=== PATIENT | female | born 1970 | race Caucasian/White ===

== ENCOUNTER 2016-09-11 19:16 | Inpatient (IN) | payer OTHER ==
[~2016-09-11] VITALS: Ht 172.7 cm; Wt 90.2 kg
[~2016-09-11 19:16] MED LIST: REM15 PO
[2016-09-11 19:33] VITALS: BP 109/77; PULSE 140; RESP 16; O2SAT 97
[2016-09-11] MEDS ORDERED: HYDROmorphone 1 mg/mL Inj ONE (19:39)
--- NOTE | 2016-09-11 19:49 | ED.REPORT ---
HPI-Abd Pain F 40 and Over Date of Service Sep 11, 2016 ED Provider: Constantin Sharp MD The patient is a 46 year old female w/ a hx of kidney stones who presents to the ED c/o R flank pain for the past 3 days. Associated symptoms include nausea. She denies fever and vomiting. History of previous kidney stones. No dysuria or frequency or hematuria. Nursing Notes Stated Complaint: RIGHT FLANK PAIN Chief Complaint: Female Abdominal Pain Nursing Notes Reviewed: Yes Allergies: Coded Allergies: No Known Allergies (Unverified Allergy, Unknown, 09/11/16) Scheduled Mirtazapine-Expunged Drug, Do Not Renew! (Remeron-Expunged Drug, Do Not Renew!) 15 Mg Tablet 15 MG PO HS General Time Seen by MD: 19:46 Chief Complaint Abdominal pain Hx Obtained From: Patient Arrived By: Walk-in Sudden in Onset?: Yes Onset Occurred: 3 days ago Symptom Duration: Since onset Progression since Onset: Gradually worsening Location: : RLQ Quality: Painful Radiation: : Does not radiate Severity: Current: Moderate Associated with: Reports: Nausea Recent Healthcare: No recent doctor visit, No recent hospitalization Similar Sx Previous: No Past Medical History Past Medical History kidney stones Ambulatory Status Independent Review of Systems Constitutional: Denies: Fever GI: Reports: Abdominal pain, Nausea, Denies: Vomiting Complete sys rev & neg: except as marked. Physical Exam Vital Signs Vital Signs (First) Date Time Temp Pulse Resp B/P Pulse Ox O2 Delivery O2 Flow Rate FiO2 09/11/16 19:33 36.5 140 16 109/77 97 Room Air Initial VS: Reviewed General/Constitutional: Awake, Alert, Cooperative, Not toxic appearing Respiratory / Chest: Atraumatic, Breath sounds NL, Breath sounds = bilat Cardiovascular: Heart rate NL, Regular rhythm, Heart sounds NL Abdomen: Atraumatic, Soft, Non-tender Back: No muscle spasm right CVAT Head / Eyes: Atraumatic, Normocephalic Skin: Atraumatic, Color NL, No rash Neurologic: Oriented X3, Speech NL, No motor deficits Upper Extremity / MS: Atraumatic, Inspection NL, Full range of motion, No deformity Lower Extremity / Pelvis / MS: Atraumatic, Inspection NL, Full range of motion , No deformity Interpretation & Diagnostics Interpretation & Diagnostics: ABDOMINAL/PELVIC CT IMPRESSION: Findings likely consistent with acute cholecystitis. Recommend gallbladder ultrasound. Intra- and extrahepatic duct dilation without an obvious obstructing process. Please correlate with lab values. Radiologist: Prakash Frey M.D. Lab Results Interpretation Result Diagram: 09/11/16201309/11/162013 Test 09/11/16 20:14 09/11/16 21:49 09/11/16 23:01 White Blood Count 10.3th/mm3 (3.8-10.1) Red Blood Count 5.07mil/mm3 (3.90-5.20) Hemoglobin 15.1g/dL (12.0-15.6) Hematocrit 43.7% (35.0-46.0) Mean Corpuscular Volume 86.2fL (81-100) Mean Corpuscular Hemoglobin 29.8pg (27.0-35.0) Mean Corpuscular Hemoglobin Concent 34.6% (32.0-37.0) Red Cell Distribution Width 12.6% (12.3-15.4) Platelet Count 289bil/L (150-400) Neutrophils (%) (Auto) 82.0% (40-74) Lymphocytes (%) (Auto) 8.3% (14-46) Monocytes (%) (Auto) 8.6% (4-12) Eosinophils (%) (Auto) 0.7% (0-5) Basophils (%) (Auto) 0.2% (0-3) Sodium Level 136mEq/L (134-144) Potassium Level 3.9mEq/L (3.5-5.2) Chloride Level 99mEq/L (97-108) Carbon Dioxide Level 22mmol/L (18-29) Blood Urea Nitrogen 8mg/dL (6-24) Creatinine 0.93mg/dL (0.57-1.00) Estimat Glomerular Filtration Rate 93mL/min (>59) Glucose Level 119mg/dL (60-99) Calcium Level 9.0mg/dL (8.5-10.1) Total Bilirubin 0.6mg/dL (0.0-1.2) Aspartate Amino Transf (AST/SGOT) 12U/L (0-50) Alanine Aminotransferase (ALT/SGPT) 10U/L (0-32) Alkaline Phosphatase 73U/L (25-150) Total Protein 6.8g/dL (6.4-8.4) Albumin 4.0g/dL (3.4-5.0) Hold Gallego Top Tube Received (Received) Urine Color Yellow (YELLOW) Urine Appearance Hazy (CLEAR,HAZY) Urine pH 5.5 (5.0-8.0) Urine Specific [place] 1.018 (1.003-1.035) Urine Protein 30mg/dL (NEG,TRACE) Urine Glucose (UA) Negativemg/dL (NEGATIVE) Urine Ketones 15mg/dL (NEGATIVE) Urine Occult Blood Large (NEGATIVE) Urine Nitrite Negative (NEGATIVE) Urine Bilirubin Negative (NEGATIVE) Urine Urobilinogen Normalmg/dL (NORMAL) Urine Leukocyte Esterase Negative (NEGATIVE) Urine RBC 11-50/hpf (0-2) Urine WBC 0-5/hpf (0-5) Urine Epithelial Cells Many/hpf (NONE-MOD) Urine Crystals None seen (NONE SEEN) Urine Bacteria Few/hpf (NONE-FEW) Urine Hyaline Casts 5/20/lpf (NONE) Urine Granular Casts None seen (NONE SEEN) Urine Waxy Casts None seen (NONE SEEN) Urine Red Blood Cell Casts None seen (NONE SEEN) Urine White Blood Cell Casts Rare (NONE SEEN) Urine Mucus Present (None Seen) Urine Trichomonas None seen (NONE SEEN) Urine Yeast None (NONE SEEN) Urinalysis Comment Fine granular casts Urine Culture Reflexed Not indicated Lipase 27U/L (13-60) Lab Results Interpretation: Urine dip: positive for blood Re-Eval/Medical Decision Med Decision/Clinical Course Right flank pain and hematuria. CT however shows unexpected finding of possible cholecystitis. With markedly tachycardic on arrival, this improved with IV hydration and pain control. Heart rate is now normal. Re-Evaluation/Progress #1: Time of Eval: 21:51 Re-Evaluation/Progress Note: Pt rechecked. Informed pt of plan for CT KV. Re-Evaluation/Progress #2: Time of Eval: 22:49 Patient Status: Condition improved, Moderate relief Re-Evaluation/Progress Note: Pt rechecked. Informed pt of possible cholecystitis. Now has RUQ tendeness on exam. Plan for ultrasound. Counseled Regarding: Diagnosis, Lab results, Need for follow-up, When/why to return to ED Discharge & Departure Shift Change Sign-Out Patient Care Transferred: Yes Laboratory Evaluation: Back, reviewed by me Imaging Studies: Done, reviewed by me awaiting US. To Dr Evans at midnight. Primary Impression: Cholecystitis Disposition: Home Discharge Condition All VS Reviewed: Yes Condition: Stable Patient Instructions: Cholecystitis (ED) Referrals: NOPCP (PCP) [facility] Scribe Attestation Portion of this note were transcribed by Antonieta Bentley. I, Dr. Sharp, personally performed the history, physical exam, and medical decision-making: I reviewed and confirmed the accuracy for the information in the transcribed note. Signed by: alex Bone, 09/11/16 [id number] copies to: [facility] Constantin Sharp MD Sep 11, 2016 19:49 Antonieta Bentley Sep 11, 2016 19:57
[2016-09-11] MEDS: HYDROmorphone 1 mg/mL Inj IVPUSH PRN ×2 (19:50→21:59)
[2016-09-11 20:28] LABS: BASOPHILS % (AUTO) 0.2 % (0-3); EOSINOPHILS % (AUTO) 0.7 % (0-5); MONOCYTES % (AUTO) 8.6 % (4-12); Mean Corpuscular Hemoglobin 29.8 pg (27.0-35.0); Mean Corpuscular Volume 86.2 fL (81-100); Platelet Count 289 bil/L (150-400)
[2016-09-11 21:59] VITALS: BP 122/82; PULSE 114; RESP 16; O2SAT 95
[2016-09-11 22:07] LABS: APPEARANCE,URINE HAZY (CLEAR,HAZY); COLOR,URINE YELLOW (YELLOW); OCCULT BLOOD,URINE LARGE (NEGATIVE); PH,URINE 5.5 (5.0-8.0)
[2016-09-11 22:11] LABS: UROBILINOGEN,URINE NORMAL (NORMAL)
[2016-09-11 23:34] VITALS: BP 96/60; PULSE 88; RESP 14; O2SAT 97
[2016-09-12] VITALS (19 sets, daily range): BP systolic 100–134; BP diastolic 50–84; PULSE 71–104; RESP 10–20; O2SAT 92–98
[2016-09-12] MEDS: HYDROmorphone 1 mg/mL Inj IVPUSH PRN ×8 (01:14→21:33)
[2016-09-12] MEDS ORDERED: fentaNYL-PF 50 mCg/mL 2 mL Inj ONE (01:59)
[2016-09-12] MEDS ORDERED: Neostigmine 1 mg/mL 5 mL Inj ONE (01:59)
[2016-09-12] MEDS ORDERED: Remifentanil 1 mg/3 mL Inj ONE (01:59)
[2016-09-12] MEDS ORDERED: Ondansetron 2 mg/mL 2 mL Inj ONE (01:59)
[2016-09-12] MEDS ORDERED: Dexamethasone 4 mg/mL Inj ONE (01:59)
[2016-09-12] MEDS ORDERED: Propofol 10,000 mCg/mL 20 mL Inj ONE (01:59)
[2016-09-12] MEDS ORDERED: Glycopyrrolate 0.2 MG/ML 1mL Inj ONE (01:59)
[2016-09-12] MEDS ORDERED: Rocuronium 10 mg/mL 5 mL Inj ONE (01:59)
[2016-09-12] MEDS ORDERED: MetoCLOpramide 5 mg/mL 2 mL Inj IVPUSH PRN ×2 (02:35→11:35)
[2016-09-12] MEDS ORDERED: Ondansetron 2 mg/mL 2 mL Inj IVPUSH PRN ×3 (02:35→13:00)
[2016-09-12] MEDS: Dextrose 5% Lactated Ringer's 1,000 ML IV SCH ×3 (03:51→22:31)
--- NOTE | 2016-09-12 04:14 | NUR ---
Admit to [facility] 249 Received phone reports from ED RN augusto at 0140, pt. arrived in the floor via WC accompanied by ED staff at 0230, able to transfer herself to bed independently with steady gait, oriented to call light, and hospital policies, pt. very anxious r/t pain and upcoming surgery, easily redirected with calm and reassurance approach, Pt. reported of hx. of IV drug abuse and suicidal attempt, locked up all belongings and sharp containers taken out, pt. pleasant and cooperative to staff and care,no suicidal ideation noted, on NPO for pos. surgery, VSS afebrile, hourly checks, call light in reach at all times and all needs attended.
--- NOTE | 2016-09-12 06:30 | PCM.HPSURG ---
Subjective Date of Service: Sep 12, 2016 Referring Provider: Admitting Physician: Ashley Oliveros DO Primary Care Physician: Samantha Hines PA-C Attending Physician: Ashley Oliveros DO Chief Complaint Right upper quadrant pain History of Present Illness Ms. Montes is a 46 year old woman who presents with 2 days of right upper quadrant abdominal pain and concern for cholecystitis, prompting surgical evaluation. The patient reports that on Monday afternoon (09/09), she began to gradually develop right upper quadrant abdominal pain and right flank pain. Initially, she thought this pain represented a kidney stone, as it was similar in quality to past episodes of nephrolitihiasis. However, the pain continued to intensity, becoming quite severe. By Monday evening, the pain had become nearly unbearable and has persisted at this level of intensity since then. She describes the pain as sharp and stabbing, radiating toward her right groin. She has had no relief, and therefore decided to present to the ED. With further questioning, she denies any correlation with the pain to PO intake, stating the pain started hours after eating a normal lunch on Monday. She has since not eaten or drank anything out of fear for worsening her symptoms. She has experienced nausea, but no vomiting, and thinks she has had some shaking chills but no fevers. She denies any change in her urine or bowel movements, noting she last passed a normal stool yesterday morning. There have been no sick contacts, and the patient denies ever experiencing similar pain, of a lesser intensity, over the past few months. 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 states she lives in recreational van and she thinks that theres a mold behind the matthews that making her SOB at times. Neurological History Hx Neurologic Problems?: No Gastrointestinal History HX of GI Problems?: Yes Gastrointestinal History: Positive for:: Gastroesphageal Reflux Heartburn Genitourinary History Hx of Gu Problems?: Yes Genitourinary History: Positive for: Kidney Stones (2013, pt. passed stones in urine) Urinary Tract Infection Other Pertinent History?: tubal ligation when she was 28 y.o, IBS Female/Male History Reproductive History Female: Denies: Currently ? Musculoskeletal History Hx Musculoskeletal Problems?: Yes Psycho Social History Hx of Psycho/Social Problems?: Yes Psycho Social History: Positive for:: Anxiety Bipolar Disorder Hx Depression Suicide Attempt (2010) Other History Hx Any Other Health Problems?: Yes Other History: Positive for:: Hospitalization (2010) Diabetes: No Other Pertinent History: tubal ligation Social History Hx Alcohol Use: YesAlcoholic Drinks Per Day: 1-2 per dayHx Substance Use: Yes (methamphetamines)Hx Tobacco Use: Yes Review of Systems Additional Information Except as noted in the HPI, a comprehensive review of systems was obtained an is otherwise negative. H&P Surgical Exam Exam General: Alert, Oriented X3, Cooperative Neck: Supple Lungs: Other (Occasional faint wheezing on end-expiration. Otherwise clear. Equal and symmetric chest excursion. ) Heart: Other (Tachycardic with rate in 100s. Normal S1/S2. No m/r/g. ) Abdomen: Soft, Non-distended, Other (Tender to palpation in the right upper quadrant with positive Galvan's sign. No masses or organomegaly. Voluntary guarding. No rebound tenderness. Not rigid. ) Extremities: Distal Pulses Palpable, Warm Neuro: Grossly Neurologically Intact Catheters: None Diagnostics: CT A/P is personally reviewed: There is diffuse gallbladder wall thickening and the CBD dilation. US abdomen: The gallbladder wall is thickened to 4 mm. There are numerous gallstones. There is no pericholecystic fluid. CBD is dilated to 7 mm. Assessment & Plan Assessment This is a 46 year old otherwise healthy female who presents with severe RUQ pain of 48 hours duration, a positive Galvan's sign, and findings consistent with acute cholecystitis. VTE Mechanical Devices: Intermittant Pneumatic CD Plan: - Admit to surgery - NPO - mIVF - Antibiosis with zosyn - Plan for laparoscopic cholecystectomy with intraop cholangiogram in the morning. - Pt will likely be able to advance diet and possibly discharge post-op, depending on operative findings Case discussed with Dr. 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 Omar Benz MD Sep 12, 2016 06:30
--- NOTE | 2016-09-12 07:46 | DRSVH ---
PROCEDURE: CT KUB ([id number]) INDICATIONS: Right flank pain and hematuria TECHNIQUE: Noncontrast 5 mm thick sections acquired from the diaphragms to the symphysis. 5 mm thick coronal an d sagittal reformats were then performed. For radiation dose reduction, the following was used: aut omated exposure control, adjustment of mA and/or kV according to patient size. COMPARISON: None. FINDINGS: Image quality: Excellent. Lung bases: Lung bases are clear. Heart size is normal. There is a small hiatal hernia. Urinary system: There is a 2 mm stone in the left kidney. No right renal stone. No hydronephrosis. B oth kidneys are normal in size. No kid or perinephric fat stranding. Both ureters appear non-dilate d throughout their expected courses. Bladder wall is contracted; no calcified bladder stones. Other solid organs: Liver and spleen are normal in size. Gallbladder wall is thickened. There also is. Common bile duct is prominent measuring up to 11 mm. No opaque common bile duct stones identifie d. There is mild intrahepatic biliary dilation. Pancreas is normal in contours. No adrenal nodules. Peritoneum and bowel: Unenhanced bowel loops demonstrate normal wall thickness and caliber. Scatter ed colonic diverticula present. No free fluid or air. Nodes and vessels: No retroperitoneal or mesenteric adenopathy by size criteria. Aorta and inferior vena cava are normal in caliber. Abdominal wall: No ventral hernias. Pelvis: No free pelvic fluid. No inguinal hernias or adenopathy. Bones: No suspicious bony lesions. No vertebral body compression fractures. IMPRESSION: 1. Cholelithiasis. There is gallbladder wall thickening suspicious for acute cholecystitis. 2. Dilated common bile duct and slightly prominent intrahepatic biliary ducts. Recommend correlation with serum bilirubin. 3. A 2 mm nonobstructive stone in the left kidney. No hydronephrosis. 4. Diverticulosis. No acute diverticulitis. No significant discrepancy with the production shift supervisor radiology preliminary report. Dictated by: Rachel Loya M.D. on 09/12/2016 at 7:38 Approved by: Rachel Loya M.D. on 09/12/2016 at 7:44
--- NOTE | 2016-09-12 08:47 | DRSVH ---
PROCEDURE: US ABDOMEN, LIMITED ([id number]) INDICATIONS: evaluate for cholecystitis TECHNIQUE: Real-time focused scanning was performed of the abdomen, with image documentation. COMPARISON: None. FINDINGS: There are gallstones. The gallbladder wall is thickened measuring 4 mm. There is positive s onographic Galvan sign. The common bile duct measures 7 mm in diameter. No definitive common bile robert t stone identified. Limited visualization of liver which is normal echotexture. IMPRESSION: 1. Cholelithiasis. There is gallbladder wall thickening and sonographic Galvan sign, suspicious for a cute cholecystitis. 2. Common bile duct is prominent in caliber. Please correlate with serum bilirubin. No significant discrepancy with the material handler 2nd shift radiology preliminary report. Dictated by: Rachel Loya M.D. on 09/12/2016 at 8:42 Approved by: Rachel Loya M.D. on 09/12/2016 at 8:45
[2016-09-12] MEDS ORDERED: CeFAZolin Inj 2 GM in IV Premix 1 EACH IV SCH (10:30)
--- NOTE | 2016-09-12 10:41 | NUR ---
Transer to Surgery Pt taken on stretcher to OR. Pt very scared, gave reassurance.
[2016-09-12] MEDS ORDERED: Lactated Ringer's 1,000 ML IV ONE (10:56)
[2016-09-12] MEDS ORDERED: Bupivacaine-MPF 0.5% W/EPI 30 mL Inj INFILTRATE ONE (11:13)
[2016-09-12] MEDS ORDERED: Lactated Ringer's 1,000 ML IV SCH (11:35)
[2016-09-12] MEDS ORDERED: Lactated Ringer's 500 ML IV PRN (11:35)
[2016-09-12] MEDS ORDERED: Atropine 0.4 mg/mL Inj IVPUSH PRN (11:35)
[2016-09-12] MEDS ORDERED: EPHEDrine Sulfate 50 mg/mL Inj IVPUSH PRN (11:35)
[2016-09-12] MEDS ORDERED: Dexamethasone 4 mg/mL Inj IVPUSH PRN (11:35)
[2016-09-12] MEDS ORDERED: Phenylephrine 10,000 mCg/mL Inj IVPUSH PRN (11:35)
[2016-09-12] MEDS ORDERED: fentaNYL-PF 50 mCg/mL 2 mL Inj IVPUSH PRN (11:35)
--- NOTE | 2016-09-12 11:35 | PCM.HPANE ---
Patient Data Surgeon Admitting Provider:Ashley Oliveros DO Attending Provider:Ashley Oliveros DO Primary Care Physician:Samantha Hines PA-C Other Provider: Reason for Visit Cholelithiasis, Cholecystitis,Choledochothiasis Ht/WT & BMI Height (Feet): 5 Height (Inches): 8.00 Weight (Kilograms): 84.500 Body Mass Index 28.23 Allergies Coded Allergies: No Known Allergies (Unverified Allergy, Unknown, 09/11/16) Past Anesthesia History Anesthesia History: Denies:: Anesthesia Reactions Diabetes History Hx Diabetes?: No MRSA MRSA: No Medications Discontinued Reported Medications Mirtazapine-Expunged Drug, Do Not Renew! (Remeron-Expunged Drug, Do Not Renew!) 15 Mg [id number] Mg PO HS 04/15/10 History History of ENT Problems?: No HEENT History: Positive for:: Abnormal Airway Denture Type: None Teeth Condition: Within Normal Limits Hx of Heart Problems?: No Cardiovascular History: Denies:: Congestive Heart Failure Hypertension Hx of Respiratory Problem?: Yes Respiratory History: Positive for:: Dyspnea Pneumonia (2015) Denies:: Tuberculosis Other Resp Pertinent History: Bronchitis 2013, pt. states she lives in recreational van and she thinks that theres a mold behind the matthews that making her SOB at times. Hx Neurologic Problems?: No Hx of GI Problems?: Yes Hx of Problems?: Yes Genitourinary History: Positive for:: Kidney Stones (2013, pt. passed stones in urine) Urinary Tract Infection Other Pertinent History: tubal ligation when she was 28 y.o, IBS Female Hx: Denies:: Currently Hx Musculoskeletal Problems?: Yes Hx of Psycho/Social Problems?: Yes Psycho Social History: Positive for:: Anxiety Bipolar Disorder Hx Depression Suicide Attempt (2010) Hx Surgeries?: Yes Hx Any Other Health Problems?: Yes Other History: Positive for:: Hospitalization (2010) History Blood Transfusions: Positive for:: Accept Blood Products? 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 Hx Alcohol Use: YesAlcoholic Drinks Per Day: 1-2 per dayHx Substance Use: Yes (methamphetamines, but has been sober for several years)Have You Smoked inLast 12 mo: YesApprox How Many Cigarettes/day: 1/2 pack in a day Stop/Bang Treated for Sleep Apnea?: No Do You Have a CPAP Machine?: No S-Snoring: Do You Snore Loudly: Yes T-Tired: feel tired, fatigued: Yes O-Obsered: Observed not breath: No P-Blood Pressure: treated: No B- Body Mass Index > 35 kg/m2: No A- Age over 50: No N- Neck Large Circumference: No G- Gender Male: No MARZENA Total Score: 2 MARZENA Risk Assessment: Low Risk, <3 Yes Risk Assessment Category Category 1A: Patient has history of documented sleep apnea, and HAS NOT received any narcotic, sedative or anesthesia administration during this stay. Category 1B: Patient has history of documented sleep apnea, and HAS received any narcotic , sedative or anesthesia administration during this stay Category 2: Patient has SUSPECTED Obstructive Sleep Apnea, and HAS received any narcotic , sedative or anesthesia administration during this stay. Category 3: Patient has SUSPECTED Obstructive Sleep Apnea and HAS NOT received narcotic, sedative or anesthesia administration during this stay. Category 4: Outpatient in Procedural Areas with known sleep apnea or who screen positive for High Risk via the STOP/BANG questionnaire. Exam Exam Vital Signs Vital Signs Date Time Temp Pulse Resp B/P Pulse Ox O2 Delivery O2 Flow Rate FiO2 09/12/16 05:46 36.8 79 18 112/68 98 Room Air 09/12/16 02:40 36.6 96 19 100/72 96 Room Air General Appearance: Alert HEENT/AIRWAY: MP 2 Lungs: Other (Occasional faint wheezing on end-expiration. Otherwise clear. Equal and symmetric chest excursion. ) Heart: Other (Tachycardic with rate in 100s. Normal S1/S2. No m/r/g. ) Additional Information very poor dentition, multiple loose teeth Meds/Labs/Diagnostics Admission Meds Current Medications Dextrose/Lactated Ringer's (D5 Lactated Ringer's) 1,000 ml @ 100 mls/hr Q10H IV Last administered on 09/12/16t 03:51; Start 09/12/16 at 02:31 Labs Test 09/11/16 20:14 09/11/16 21:49 09/11/16 23:01 White Blood Count 10.3th/mm3 (3.8-10.1) Red Blood Count 5.07mil/mm3 (3.90-5.20) Hemoglobin 15.1g/dL (12.0-15.6) Hematocrit 43.7% (35.0-46.0) Mean Corpuscular Volume 86.2fL (81-100) Mean Corpuscular Hemoglobin 29.8pg (27.0-35.0) Mean Corpuscular Hemoglobin Concent 34.6% (32.0-37.0) Red Cell Distribution Width 12.6% (12.3-15.4) Platelet Count 289bil/L (150-400) Neutrophils (%) (Auto) 82.0% (40-74) Lymphocytes (%) (Auto) 8.3% (14-46) Monocytes (%) (Auto) 8.6% (4-12) Eosinophils (%) (Auto) 0.7% (0-5) Basophils (%) (Auto) 0.2% (0-3) Sodium Level 136mEq/L (134-144) Potassium Level 3.9mEq/L (3.5-5.2) Chloride Level 99mEq/L (97-108) Carbon Dioxide Level 22mmol/L (18-29) Blood Urea Nitrogen 8mg/dL (6-24) Creatinine 0.93mg/dL (0.57-1.00) Estimat Glomerular Filtration Rate 93mL/min (>59) Glucose Level 119mg/dL (60-99) Calcium Level 9.0mg/dL (8.5-10.1) Total Bilirubin 0.6mg/dL (0.0-1.2) Aspartate Amino Transf (AST/SGOT) 12U/L (0-50) Alanine Aminotransferase (ALT/SGPT) 10U/L (0-32) Alkaline Phosphatase 73U/L (25-150) Total Protein 6.8g/dL (6.4-8.4) Albumin 4.0g/dL (3.4-5.0) Hold Gallego Top Tube Received (Received) Urine Color Yellow (YELLOW) Urine Appearance Hazy (CLEAR,HAZY) Urine pH 5.5 (5.0-8.0) Urine Specific [place] 1.018 (1.003-1.035) Urine Protein 30mg/dL (NEG,TRACE) Urine Glucose (UA) Negativemg/dL (NEGATIVE) Urine Ketones 15mg/dL (NEGATIVE) Urine Occult Blood Large (NEGATIVE) Urine Nitrite Negative (NEGATIVE) Urine Bilirubin Negative (NEGATIVE) Urine Urobilinogen Normalmg/dL (NORMAL) Urine Leukocyte Esterase Negative (NEGATIVE) Urine RBC 11-50/hpf (0-2) Urine WBC 0-5/hpf (0-5) Urine Epithelial Cells Many/hpf (NONE-MOD) Urine Crystals None seen (NONE SEEN) Urine Bacteria Few/hpf (NONE-FEW) Urine Hyaline Casts 5/20/lpf (NONE) Urine Granular Casts None seen (NONE SEEN) Urine Waxy Casts None seen (NONE SEEN) Urine Red Blood Cell Casts None seen (NONE SEEN) Urine White Blood Cell Casts Rare (NONE SEEN) Urine Mucus Present (None Seen) Urine Trichomonas None seen (NONE SEEN) Urine Yeast None (NONE SEEN) Urinalysis Comment Fine granular casts Urine Culture Reflexed Not indicated Lipase 27U/L (13-60) Plan Impression Patient chart reviewed, patient interviewed and anesthestic plan with risks, benefits, and alternatives discussed, and informed consent obtained. NPO per Anesth. Guidelines: Yes ASA Physical Status: ASA2 Mod Systemic Disease Anesthetic Plan: GA Bene/Risks/Altern/Consents: Yes HP Complete Prior to Induction: Yes Other Discussed GETA. Discussed increased risk of dental injury. All questions were answered and she agrees to proceed. Owen Burk MD Sep 12, 2016 09:20
[2016-09-12] MEDS ORDERED: diphenhydrAMINE 25 mg Capsule PO PRN (13:00)
[2016-09-12] MEDS: Acetaminophen IV 1,000 MG in IV Premix 1 EACH IV PRN (13:15)
--- NOTE | 2016-09-12 13:42 | PCM.ANEP1 ---
Post Anesthesia PACU Phase 1 Assessment Vital Signs Vital Signs Date Time Temp Pulse Resp B/P Pulse Ox O2 Delivery O2 Flow Rate FiO2 09/12/16 13:20 82 16 120/69 96 09/12/16 13:15 75 15 116/60 92 Room Air 09/12/16 13:10 73 16 128/60 92 Room Air 09/12/16 13:05 37.3 89 16 134/68 95 Room Air 09/12/16 08:15 37.5 95 18 120/78 93 Room Air 09/12/16 05:46 36.8 79 18 112/68 98 Room Air Anesthetic Administered: GA Level of Alertness: Awake, talking SWEEENY's with Equal Strength: Yes Pain: Yes Pain Scale Score: 6 Nausea or Vomiting: No CV Function & Hydration Stable: Yes Airway Device: none Oxygen Delivery: Simple Mask Lungs: Other (Occasional faint wheezing on end-expiration. Otherwise clear. Equal and symmetric chest excursion. ) Summary Patient extubated awake. Teeth intact upon arrival to PACU. PACU Phase 2 Assessment Complications: No Follow up Care: No Patient Instructions Provided: N/A Owen Burk MD Sep 12, 2016 13:42
[2016-09-12 13:52] LABS: BASOPHILS % (AUTO) 0.1 % (0-3); EOSINOPHILS % (AUTO) 0.1 % (0-5); MONOCYTES % (AUTO) 2.9 % (4-12); Mean Corpuscular Hemoglobin 30.2 pg (27.0-35.0); Mean Corpuscular Volume 89.3 fL (81-100); NEUTROPHILS % (AUTO) 92.2 % (40-74); Platelet Count 241 bil/L (150-400)
--- NOTE | 2016-09-12 14:10 | NUR ---
Return from PACU report received from Karine SAUL. Pt arrived via stretcher at 1410 Able to scoot self from stretcher to bed with cues. c/o pain 07/06, rx given per request. Reports "I just don't feel well" ice chips given.
[2016-09-12] MEDS: D5 0.45% NaCl + KCl 20 mEq/L 1,000 ML IV SCH ×2 (14:28→23:05)
--- NOTE | 2016-09-12 20:20 | OP ---
[address] [address] OPERATIVE REPORT PATIENT: SETH INMAN : 1970 MR#: [id number] ADMIT: 09/12/2016 JOB ID: [id number] DATE OF SURGERY: 09/12/2016 PREOPERATIVE DIAGNOSIS(ES): Symptomatic gallstones. POSTOPERATIVE DIAGNOSIS(ES): Acute cholecystitis. PROCEDURE: Laparoscopic cholecystectomy. SURGEON: Sameer Barclay MD. CHECKER LOADER: Evelio Bowman PA-C. INDICATIONS: A 46-year-old woman admitted the night before with symptomatic gallstones. I saw her in the morning and confirmed that I believed her gallbladder was her problem, reviewed plans for surgery with her. She agreed to proceed with me as her surgeon. FINDINGS: 1. curriculum assistant was medically necessary for camera operation and exposure. 2. The patient had marked inflammation of the gallbladder, somewhat surprising given her overall presentation. A dome-down cholecystectomy was performed, cholangiogram was not obtained as described below. PROCEDURE: The patient brought to the operating room. General anesthetic was administered. The abdomen was prepped and draped in sterile fashion. Surgical time-out was performed. SCOAP protocol was followed. She received perioperative Ancef. We began with a Veress needle. After establishing CO2 pneumoperitoneum, we placed an optical trocar and then three additional ports. The stomach and greater omentum were stuck up to the gallbladder. We peeled these off. Gallbladder was retracted cephalad. There was a great deal of inflammation around the triangle of Calot. We began our dissection on the gallbladder side of the triangle of Calot. After a fair amount of dissection, I decided that it would be safer to go from the dome-down approach. We incised the gallbladder wall and retracted the peritoneum northward and looked for a good plane between the gallbladder wall and the edematous liver bed. We eventually found one, though there was no obvious plane and we then got into a plane right on the gallbladder, including a few holes in the gallbladder. Dissection was tough but we stayed on the gallbladder, getting inside the gallbladder once or twice and then removed stones with the stone scoop. Staying along the wall of the gallbladder we continued down laterally and posteriorly and then medially and eventually I reached a point where I was concerned that we should just do a partial cholecystectomy out of safety. What I ended up doing was amputating the upper 80% of the gallbladder and removing this in a bag, irrigating out, and then re-examining the operative field. Looking inside the gallbladder, we were able to identify down to the area of the triangle of Calot anteriorly and where it was clearly gallbladder and I incised this thickened, inflamed wall and we were able to dissect around and obtain circumferential dissection of the gallbladder down to where from the inside we could see where the gallbladder ended and it was attached to some tissue coming out of the hepatoduodenal ligament. We then proceeded to go across this with scissors close to the gallbladder, initially going to what I thought was going to be a cystic duct and appeared to be possibly an obliterated cystic duct. We put a clip on this and then continued across and found pretty much just filmy tissue. We removed the remainder of the gallbladder in a bag, examined it on the back table to confirm that the anatomy that we interpreted was correct. The gallbladder was intact right down to where the cystic duct entry should. We now returned to the operative field and examined the tissue that had been coming directly into the gallbladder, removing the clip and probing this to see if we could find a patent cystic duct. I could not find one, so I replaced the clip. I placed another clip on some tissue that was loose and free that had been coming into the gallbladder and then proceeded to irrigate out the area of the operative bed. Operative bed was clean. We had not left any gallbladder on the posterior surface of the liver bed. Hemostasis was good. There is no bile leak. After suctioning out all of our irrigation, we placed a 19-Luxembourger round drain in the liver bed and brought it out through the right most lateral wall stab wound. We then proceeded to close the wounds and secured the drain. At the time of this dictation, the patient is awakened from anesthetic. We will plan to have her stay overnight, check her LFTs in the morning.
[2016-09-13 00:04] VITALS: BP 107/66; PULSE 95; RESP 16; O2SAT 96
[2016-09-13] MEDS: HYDROmorphone 1 mg/mL Inj IVPUSH PRN ×7 (01:57→21:22)
[2016-09-13 04:10] VITALS: BP 104/64; PULSE 83; RESP 14; O2SAT 96
--- NOTE | 2016-09-13 06:01 | NUR ---
Post Op Recovery Patient is recovering well with some abd. pain relieved with medication. Very little drainage from the CLARISSE tube. VSS and she is in good spirits. Waiting this AM for surgeon to give D/C instructions.
[2016-09-13 07:01] LABS: BASOPHILS % (AUTO) 0.1 % (0-3); EOSINOPHILS % (AUTO) 0.3 % (0-5); Mean Corpuscular Hemoglobin 29.7 pg (27.0-35.0); Mean Corpuscular Volume 85.9 fL (81-100); NEUTROPHILS % (AUTO) 77.6 % (40-74); Platelet Count 276 bil/L (150-400)
[2016-09-13 07:06] VITALS: BP 149/82; PULSE 88; O2SAT 96
[2016-09-13] MEDS: Lactated Ringer's 1,000 ML IV SCH (11:24)
[2016-09-13] MEDS: Acetaminophen IV 1,000 MG in IV Premix 1 EACH IV PRN (11:26)
--- NOTE | 2016-09-13 12:07 | PROG NOTE ---
[address] [address] PROGRESS NOTE PATIENT: SETH INMAN : 1970 MR#: [id number] ADMIT: 09/12/2016 JOB ID: [id number] DATE: 09/13/2016 SUBJECTIVE: Postop day one laparoscopic cholecystectomy. OBJECTIVE: The patient is afebrile, stable vital signs but is having an above average amount of postop pain, particularly in the right upper quadrant. Vicente-Sims drain has put out a low volume of yovani-colored liquid. Her incisions are without signs of infection. Labs show white count of 9.8, hematocrit is dropped down to 31.8. Her chemistries are normal. Liver function tests remain normal with bilirubin of 0.3 and alkaline phosphatase is 60. IMPRESSION AND PLAN: Clinically having more pain than expected and the Vicente-Sims appears to me to be of low volume bile leak, possibly from the liver bed or the cystic duct. The case was discussed with Dr. Chapman, and he plans to obtain an MRCP given the patient's preoperative dilated common duct and clinical history consistent with passing a common duct stone. She is having too much pain to go home even if she did not have an issue of bile leak. Because of bile leak I will place her on Zosyn.
--- NOTE | 2016-09-13 12:48 | NUR ---
Versed Medication overridden r/t omnicell problem for removal. 1mg given and 1mg wasted w/ shavon watts Addendum: 09/13/16 at 1351 by ABAD JOHNSON RN second dose required override to obtain as well, then gave 1mg per order and wasted 1mg w/ clint gaitan rn. See emar admin comment to verify.
[2016-09-13 13:30] VITALS: BP 107/66; PULSE 89; RESP 16; O2SAT 97
--- NOTE | 2016-09-13 13:57 | PATH ---
SURGICAL PATHOLOGY Attending Physician:Sameer Barclay MD CASE STATUS: Signed Out PATIENT NAME: SETH INMAN PID: [id number] : 1970 DATE COLLECTED:09/12/2016 21:41 SPECIMEN: 1: Gallbladder 2: Gallbladder CLINICAL HISTORY: SYMPTOMATIC GALLSTONES, ACUTE CHOLECYSTITIS 1). GALLBLADDER WITH STONES 2). GALLBLADDER WITH STONES FINAL DIAGNOSIS: 1. 2. GALLBLADDER: CHOLELITHIASIS WITH ASSOCIATED ACUTE AND CHRONIC CHOLECYSTITIS. ICD10 K80.66 GROSS DESCRIPTION: The specimen is received in one formalin filled container and one container not labeled as to the fixative, both containers are labeled with the patient's name. 1). The specimen is labeled "gallbladder and stones" and consists of a rough and fragmented portion of possible gallbladder which measures 6.0 x 8.0 x 2.3 CM. The cystic duct is not identified. The serosa is smooth. The wall is 0.4-0.7 CM in thickness. The mucosa is a dark pink red in color. The lumen contains clotted blood and approximately 5-10 fragments of yellow-rose fragmented calculi which range in size from 0.1-1.5 CM in greatest dimension. 5 primary care sales representative sections are submitted in cassettes 1A, 1B. 2). The specimen is labeled "gallbladder and stones" and consists of a 3.0 x 2.0 x 1.0 CM portion of possible gallbladder. The serosa is smooth. No cystic duct is identified. The wall is 0.3-0.6 CM in thickness. The mucosa is a dark pink in color. No calculi are noted. 3 primary care sales representative sections are cemented in cassettes 2A. 09/12/2016DC MICRO DESCRIPTION: See diagnosis. ICD-9 CODES: CPT CODES: 1: 56529 2: 17389 Electronically Signed Out Constantin Durbin MD [facility] Pathology [facility] [address] [place] [address] Technical component performed at [facility], [facility] [address], [place], [address]
[2016-09-13] MEDS: Piperacillin-Tazo 3.375 Gm Inj 3.375 GM in Dextrose 5% Minibag Plus 50 ML IV SCH (16:28)
--- NOTE | 2016-09-13 16:55 | DRSVH ---
PROCEDURE: NM HIDA SCAN BILE LEAK RADIOPHARMACEUTICAL: 5.6 mCi Tc-99m mebrofenin IV. INDICATIONS: POST CHOLECYSTECTOMY, POSSIBLE BILE LEAK TECHNIQUE: Following intravenous administration of Tc-99m mebrofenin, sequential anterior abdominal images were obtained through at least 60 minutes. COMPARISON: None. FINDINGS: There is normal tracer uptake and excretion by the liver. There is normal visualization o f intrahepatic ducts, common bile duct, and small bowel There is normal tracer reflux into the proxim al duodenum. No extraluminal activity identified to suggest bile leak. IMPRESSION: 1. Negative for bile leak via nuclear imaging. 2. Normal hepatobiliary scan post cholecystectomy. Dictated by: Casey Soriano M.D. on 09/13/2016 at 16:51 Approved by: Casey Soriano M.D. on 09/13/2016 at 16:53
--- NOTE | 2016-09-13 17:25 | NUR ---
Social Work Note: Multidisciplinary Rounds/Screen Note/Attempted Assessment Data& Assessment: EMR reviewed. Pt was discussed in AM rounds today, Per MD pt to undergo MRI. Pt had gallbladder removed yesterday. SW attempted to meet with pt at bedside to check in and assess for any unmet needs. Pt was away in MRI. Ivelisse Montes is a 46 year old female admitted on 09/12/2016 under observation for cholelithiasis. Pt has [employer] insurance coverage and sees Samantha Hines for primary care. Pt independent at baseline and independent with self care. SW to continue to follow for MD orders and pt needs. No needs identified at this time. SW to check in with pt to confirm discharge plan. Plan: Anticipated discharge home via POV when medically ready. SW to continue to follow for MD orders and pt needs. No needs identified at this time. SW to check in with pt to confirm discharge plan. RAJEEV Lucero
--- NOTE | 2016-09-13 17:49 | NUR ---
Pain, Diagnostic Studies At approximately 7:30, Pt. had an episode of intense pain and anxiety. MD at to assess. MRI - MRCP ordered to evaluate wound, drain, abdomen. Patient too anxious to tolerate. MD ordered midazolam and given per order. Patient still not able to evaluate MRI, for the second time. Next ordered was a @@ which was tolerated. Pain decreased throughout the day. Addendum: 09/13/16 at 1755 by SHARRI THIBODEAUX RN Next ordered was a HIDA SCAN which was tolerated. Pain decreased throughout the day.
--- NOTE | 2016-09-13 18:47 | CONS ---
[address] [address] CONSULTATION REPORT PATIENT: SETH INMAN : 1970 MR#: [id number] ADMIT: 09/12/2016 JOB ID: [id number] DATE OF SERVICE: 09/13/2016 PHYSICIAN REQUESTING CONSULTATION: Sameer Barclay MD. REASON FOR CONSULTATION: A dilated common bile duct that was seen on imaging and possible bile leak. HISTORY OF PRESENTING ILLNESS: The patient is a 45-year-old woman, who presented to the emergency department on September 12 with a two day complaint of right upper quadrant pain. The pain radiated into the right flank and was associated with nausea. She denies any vomiting. She does report having had some chills two days ago along with the dark-colored urine, but this, however, subsequently passed. She therefore presented to the emergency department. She had ongoing right upper quadrant pain. In the emergency department, aside from tachycardia, her vital signs were otherwise normal. Her blood work revealed a mild leukocytosis with a slight left shift. LFTs were normal as was the lipase. She subsequently had a CT scan of the abdomen done which showed that there was gallbladder wall thickening, dilated common bile duct and slight prominence of the intrahepatic ducts. No free pelvic fluid was seen. She then had an ultrasound which showed cholelithiasis and gallbladder wall thickening and a Galvan sign was positive. She subsequently underwent a cholecystectomy and was noted to have acute cholecystitis. An intraoperative cholangiogram was unable to be performed. She did have a CLARISSE drain placed during her surgery. I have been asked by Surgery to see her regarding ongoing right upper quadrant pain and possible bile leak. PAST MEDICAL HISTORY: Significant for kidney stones. PAST SURGICAL HISTORY: Includes tubal ligation. FAMILY HISTORY: Noncontributory. SOCIAL HISTORY: Alcohol: She drinks 1-2 alcoholic drinks a day. She also does have a history of methamphetamine use but has been sober for several years and she smokes about 1 to 1-1/2 packs of cigarettes daily. 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 MEDICATIONS: She takes no medications at home. ALLERGIES: She has no known drug allergies. REVIEW OF SYSTEMS: A 10-point review of systems is negative except as mentioned above in the HPI. PHYSICAL EXAMINATION: Her temperature is 37.5, her pulse is 95, blood pressure is 120/78, respiratory rate is 18. Generally, she is a young woman who appears to be in some mild distress secondary to pain which she states is in the right upper quadrant. She is, however, appropriate and answers questions appropriately. HEENT no pallor. No icterus. Oropharynx is clear, however, poor dentition. Chest exam is clear to auscultation bilaterally. Cardiovascular exam: S1, S2 heard. Abdomen: She does have Steri-Strips over her surgical sites from her laparoscopic cholecystectomy and there is a right CLARISSE drain in the right upper quadrant that has bloody fluid in the bulb. Her abdomen: She does have sort of diffuse tenderness. Bowel sounds are appreciated. Extremities without edema. LABORATORY DATA: Today, shows a white blood cell count of 9.8, hemoglobin of 11, hematocrit of 31.8, platelet count 276. Her LFTs continue to remain normal with the exception of a mild drop in her albumin to 3.1, and her total protein to 5.5. Her serum glucose is mildly elevated at 112 and her calcium is mildly depressed at 8.3. ASSESSMENT AND PLAN: A 46-year-old woman presenting with acute cholecystitis and imaging showing biliary dilation which is concerning for choledocholithiasis. However, with her normal LFTs this would go against that. An MRI was ordered earlier today. The patient, however, was unable to tolerate that and therefore subsequently a HIDA scan has been ordered to evaluate for the possibility of a bile leak as well as to see if this maybe evidence of stones in her bile duct. If HIDA scan does not show evidence of a bile leak, we could plan for endoscopic ultrasound to evaluate for common bile duct stones. If present, then we could proceed with ERCP. In the meantime, we continue to follow LFTs, continue pain control. Thanks for allowing me to participate in this patient's care. If you have any further questions, please do not hesitate to contact me.
--- NOTE | 2016-09-13 20:02 | PROG NOTE ---
[address] [address] PROGRESS NOTE PATIENT: SETH INMAN : 1970 MR#: [id number] ADMIT: 09/12/2016 JOB ID: [id number] DATE: 09/13/2016 The patient is seen in followup this afternoon. She was seen in consultation by Dr. Chapman. She was unable to tolerate MRI after two attempts. She did have a HIDA scan which demonstrates no evidence of bile leak. On examination tonight, she is much more comfortable, tells me that she is relatively pain-free, requesting a meal. Her Vicente-Sims drainage is much clearer, no longer has any brown bile staining. IMPRESSION AND PLAN: Doing well. I have reviewed Dr. Chapman's note and he may be interested in performing an endoscopic ultrasound tomorrow. It is possible that I was mistaken about the bile in the drain, but I suspect that she has a transient minor bile leak or perhaps some spilled bile that had not been drained previously. However, at this point, based on the HIDA scan and the clinical appearance of the drain, there is no leak. I will let her have clear liquids tonight, keep her n.p.o. after midnight in case Dr. Chapman wants to proceed with endoscopic ultrasound tomorrow, per his note. If all is well, she should be able to be discharged without her drain within the next day or two. I explained to her that I will not be here for the next several days, but she will be seen by the Surgery Service.
[2016-09-14] VITALS (7 sets, daily range): BP systolic 117–132; BP diastolic 65–106; PULSE 66–86; RESP 12–16; O2SAT 95–98
[2016-09-14] MEDS: Piperacillin-Tazo 3.375 Gm Inj 3.375 GM in Dextrose 5% Minibag Plus 50 ML IV SCH ×4 (01:56→23:48)
[2016-09-14] MEDS: Lactated Ringer's 1,000 ML IV SCH ×2 (01:56→03:50)
--- NOTE | 2016-09-14 06:18 | NUR ---
Pain/Anxiety Pt. had another episode of intense Px that was unresolved with Dilaudid at first and was given oxycodone with relieve. Her pain increases as does her anxiety which cause her to scream out. Constant reassurance also plays a part in calming her down. She was calm the rest of this shift.
--- NOTE | 2016-09-14 07:36 | NUR ---
Zosyn Dose #2 was scanned in and saved as given, however it was not. Second dose is now starting.
[2016-09-14 08:01] LABS: BASOPHILS % (AUTO) 0.2 % (0-3); EOSINOPHILS % (AUTO) 1.6 % (0-5); MONOCYTES % (AUTO) 10.4 % (4-12); Mean Corpuscular Hemoglobin 29.2 pg (27.0-35.0); Mean Corpuscular Volume 88.6 fL (81-100); NEUTROPHILS % (AUTO) 66.8 % (40-74); Platelet Count 229 bil/L (150-400)
--- NOTE | 2016-09-14 09:00 | PCM.PNSURG ---
Subjective Date of Service: Sep 14, 2016 Date of Service: Sep 14, 2016 Visit Information: Reason for Visit Cholelithiasis, Cholecystitis,Choledochothiasis Surgery/Surgery Date Post-Op Day # 2 S/P Laparoscopic cholecystectomy Date of Admission: Sep 12, 2016 at 01:58 Hospital Day # Subjective: Dr. Barclay was concerned for possible bile leak? The patient has improved generalized nonspecific intermittent abdominal pain today with pertinent positive psychosocial comorbidities and effectively controlled with by mouth analgesics. She was unable to tolerate MRIs secondary to anxiety and also had a negative HIDA scan yesterday. Her CLARISSE drain output is not bilious. She is hungry and currently tolerating a clear liquid diet and voiding with no reported bowel movements or flatus. Her LFTs and white blood cell count so far has been negative as well. Wood Setter Dr. Shin confired with Dr. Cannon regarding the diatation of her CBD. The patient is ambulating independently in the hallway without significant pain and will likely undergo a repeat MRCP + CT abdomen without contrast pancreas protocol under sedation. Gastrointestinal: Good Appetite, No N/V Pain Management: PO, IV Push, Good Pain Control Postop Activity: Ambulating in [place] Objective Vital Sign- Last 8 Hours Date Time Temp Pulse Resp B/P Pulse Ox O2 Delivery O2 Flow Rate FiO2 09/14/16 08:58 37.1 72 16 125/82 97 Room Air Intake and Output- Last 8 Hour 09/14/16 Cumulative From/Thru 07:00 09/11/16 19:33 - 09/14/16 06:00 Intake Total 4569 ml Output Total 60 ml 850 ml Balance -60 ml 3719 ml Intake Oral 1670 ml IV Total 2899 ml Output Urine Total 600 ml Drainage Total 60 ml 150 ml Estimated Blood Loss 100 ml # Voids 5 # Bowel Movements 0 General: Alert, Oriented X3, Cooperative, No Acute Distress Lungs: Clear to Auscultation Heart: Exam Unremarkable Abdomen: Soft, Appropriately tender, Non-distended SURGICAL WOUND : Wound General Appearence: Steri Strips, Intact, Well Approximated, No Erythema, No Discharge, No Inflammatory Changes Wound Drainage Type: CLARISSE Drain #1 (60 mL serosanguineous fluid only) Extremities: Thigh&Calf Soft/Nontender Neuro: Normal Speech Result Diagram: 09/14/16 0742 09/14/16 0742 Assessment & Plan Impression This is a 46-year-old female postoperative day #2 status post laparoscopic cholecystectomy but her attending surgeon Dr. Sameer Barclay M.D. was unable to perform intraoperative cholangiogram documenting +/- bilious drain output postoperatively recommending GI consult to rule out, common bile duct obstruction. Unfortunately the patient was unable to undergo MRI secondary to anxiety. However she did have a negative HIDA scan and now has normal serosanguineous CLARISSE drain output of 60ml. Her white blood cell count, bilirubin, and liver enzymes are within normal limits. She is otherwise doing well on clear liquids without significant nausea, vomiting, or bowel movements and improving nonspecific generalized intermittent pain controlled with by mouth analgesics. Wood Setter Dr. Shin and Dr. Cannon discussed repeat attempt at MRCP and MRI of the abdomen without contrast under sedation as recommended by radiology. Primary diagnosis: 1. Acute cholecystitis 2. Status post laparoscopic cholecystectomy POD # 2 Other Medical & Surgical History History of methamphetamine abuse History of pneumonia 2016 Tubal ligation GERD UTI Nephrolithiasis Anxiety Bipolar disorder History of depression and suicide attempts 2010 Problems: Plan 1. CT abdomen without contrast pancreas protocol & MRCP under sedation. 2. Follow up after results for reevaluation. 3. Continue standard postoperative protocols including encouraging supervised ambulation. Gianfranco Jurado PA-C Sep 14, 2016 09:00
[2016-09-14] MEDS ORDERED: Propofol 10,000 mCg/mL 20 mL Inj ONE (09:07)
[2016-09-14] MEDS ORDERED: fentaNYL-PF 50 mCg/mL 2 mL Inj ONE (09:07)
--- NOTE | 2016-09-14 12:16 | PCM.PNMED ---
Subjective Date of Service Sep 14, 2016 Subjective abdominal pain improved overall she does report episodic worsening abdominal pain in the RUQ which is controlled with pain medications she denies nausea or vomiting passing flatus Exam Vital Signs Vital Sign - Last Date Time Temp Pulse Resp B/P Pulse Ox O2 Delivery O2 Flow Rate FiO2 09/14/16 08:58 37.1 72 16 125/82 97 Room Air Intake and Output 09/13/16 09/13/16 09/14/16 Cumulative From/Thru 15:00 23:00 07:00 09/11/16 19:33 - 09/14/16 06:00 Intake Total 4569 ml Output Total 60 ml 60 ml 850 ml Balance -60 ml -60 ml 3719 ml Intake Oral 1670 ml IV Total 2899 ml Output Urine Total 600 ml Drainage Total 60 ml 60 ml 150 ml Estimated Blood Loss 100 ml # Voids 5 # Bowel Movements 0 Exam Gen- very anxious HEENT- no pallor or icterus Resp- clear bilaterally CVS-RRR Abdomen- soft, mild diffuse tenderness, CLARISSE drain non bilious fluid Lab and Diagnostics Result Diagram: 09/14/16 0742 09/14/16 0742 Assessment & Plan Dilated CBD with Normal LFT's -Recommend MRCP to evaluate with anesthesia assistance -if attempt at MRCP fails with anesthesia assisted sedation, could then consider EUS, -if filling defects noted then will plan for ERCP tomorrow or monday S/P cholecystectomy for acute calculous cholecystitis -post op care as per surgery team VTE Mechanical Devices: Intermittant Pneumatic CD Ghanshyam Chapman MD Sep 14, 2016 12:16
--- NOTE | 2016-09-14 15:40 | NUR ---
Social Work: Multidisciplinary Rounds Pt discussed in rounds. Pt not likely to d/c today. Pt continues to have her baseline anxiety. Pt currently on IVABX. 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 RAJEEV Leung
[2016-09-14] MEDS: HYDROmorphone 1 mg/mL Inj IVPUSH PRN ×2 (15:55→20:38)
--- NOTE | 2016-09-14 17:40 | NUR ---
Diagnostics and Anxiety Dr. Muñiz spoke at length and explained MRI MRSP procedure to patient who consented to scan with anesthesia managing anxiety/agitation. Patient continues to have sudden moments of tearfulness/feeling overwhelmed. Low stimulation and soothing aid quite a bit. Patient taken off floor to MRI at 1630.
--- NOTE | 2016-09-14 18:11 | PCM.HPANE ---
Patient Data Surgeon Admitting Provider:Ashley Oliveros DO Attending Provider:Ashley Oliveros DO Primary Care Physician:Samantha Hines PA-C Other Provider: Reason for Visit Cholelithiasis, Cholecystitis,Choledochothiasis Ht/WT & BMI Height (Feet): 5 Height (Inches): 8.00 Weight (Kilograms): 90.200 Body Mass Index 28.23 Allergies Coded Allergies: No Known Allergies (Unverified Allergy, Unknown, 09/11/16) Past Anesthesia History Anesthesia History: Positive for:: Abnormal Airway, Denies:: Anesthesia Reactions Diabetes History Hx Diabetes?: No MRSA MRSA: No Medications Home Meds Incl Beta Chika: No Discontinued Reported Medications Mirtazapine-Expunged Drug, Do Not Renew! (Remeron-Expunged Drug, Do Not Renew!) 15 Mg Wvkgio00 Mg PO HS 04/15/10 History History of ENT Problems?: No HEENT History: Positive for:: Abnormal Airway Denture Type: None Teeth Condition: Within Normal Limits Hx of Heart Problems?: No Cardiovascular History: Denies:: Congestive Heart Failure Hypertension Hx of Respiratory Problem?: Yes Respiratory History: Positive for:: Dyspnea Pneumonia (2015) Denies:: Tuberculosis Other Resp Pertinent History: Bronchitis 2013, pt. states she lives in recreational van and she thinks that theres a mold behind the matthews that making her SOB at times. Hx Neurologic Problems?: No Hx of GI Problems?: Yes Hx of Problems?: Yes Genitourinary History: Positive for:: Kidney Stones (2013, pt. passed stones in urine) Urinary Tract Infection Other Pertinent History: tubal ligation when she was 28 y.o, IBS Female Hx: Denies:: Currently Hx Musculoskeletal Problems?: Yes Hx of Psycho/Social Problems?: Yes Psycho Social History: Positive for:: Anxiety Bipolar Disorder Hx Depression Suicide Attempt (2010) Hx Surgeries?: Yes Hx Any Other Health Problems?: Yes Other History: Positive for:: Hospitalization (2010) History Blood Transfusions: Positive for:: Accept Blood Products? 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 Hx Alcohol Use: YesAlcoholic Drinks Per Day: 1-2 per day Hx Substance Use: Yes (methamphetamines, but has been sober for several years) Have You Smoked inLast 12 mo: YesApprox How Many Cigarettes/day: 1/2 pack in a day Stop/Bang Treated for Sleep Apnea?: No Do You Have a CPAP Machine?: No S-Snoring: Do You Snore Loudly: Yes T-Tired: feel tired, fatigued: Yes O-Obsered: Observed not breath: No P-Blood Pressure: treated: No B- Body Mass Index > 35 kg/m2: No A- Age over 50: No N- Neck Large Circumference: No G- Gender Male: No MARZENA Total Score: 2 MARZENA Risk Assessment: Low Risk, <3 Yes Risk Assessment Category Category 1A: Patient has history of documented sleep apnea, and HAS NOT received any narcotic, sedative or anesthesia administration during this stay. Category 1B: Patient has history of documented sleep apnea, and HAS received any narcotic , sedative or anesthesia administration during this stay Category 2: Patient has SUSPECTED Obstructive Sleep Apnea, and HAS received any narcotic , sedative or anesthesia administration during this stay. Category 3: Patient has SUSPECTED Obstructive Sleep Apnea and HAS NOT received narcotic, sedative or anesthesia administration during this stay. Category 4: Outpatient in Procedural Areas with known sleep apnea or who screen positive for High Risk via the STOP/BANG questionnaire. Low Risk, <3 Yes Exam Exam Vital Signs Vital Signs Date Time Temp Pulse Resp B/P Pulse Ox O2 Delivery O2 Flow Rate FiO2 09/14/16 16:15 37.5 09/14/16 14:30 38.4 86 12 131/83 96 Room Air 09/14/16 08:58 37.1 72 16 125/82 97 Room Air General Appearance: Alert HEENT/AIRWAY: MP 2 Lungs: Clear to Auscultation Heart: Exam Unremarkable Meds/Labs/Diagnostics Admission Meds Current Medications Piperacillin Sod/ Tazobactam Sod/ Dextrose/Water (Zosyn 3.375 Gm Inj/D5W Minibag Plus) 50 ml @ 12.5 mls/hr Q8H IV Last administered on 09/14/16t 15:48 ; Start 09/14/16 at 15:30 Labs Test 09/11/16 20:14 09/11/16 21:49 09/11/16 23:01 09/14/16 07:42 Hold Gallego Top Tube Received (Received) Urine Color Yellow (YELLOW) Urine Appearance Hazy (CLEAR,HAZY) Urine pH 5.5 (5.0-8.0) Urine Specific [place] 1.018 (1.003-1.035) Urine Protein 30mg/dL (NEG,TRACE) Urine Glucose (UA) Negativemg/dL (NEGATIVE) Urine Ketones 15mg/dL (NEGATIVE) Urine Occult Blood Large (NEGATIVE) Urine Nitrite Negative (NEGATIVE) Urine Bilirubin Negative (NEGATIVE) Urine Urobilinogen Normalmg/dL (NORMAL) Urine Leukocyte Esterase Negative (NEGATIVE) Urine RBC 11-50/hpf (0-2) Urine WBC 0-5/hpf (0-5) Urine Epithelial Cells Many/hpf (NONE-MOD) Urine Crystals None seen (NONE SEEN) Urine Bacteria Few/hpf (NONE-FEW) Urine Hyaline Casts 5/20/lpf (NONE) Urine Granular Casts None seen (NONE SEEN) Urine Waxy Casts None seen (NONE SEEN) Urine Red Blood Cell Casts None seen (NONE SEEN) Urine White Blood Cell Casts Rare (NONE SEEN) Urine Mucus Present (None Seen) Urine Trichomonas None seen (NONE SEEN) Urine Yeast None (NONE SEEN) Urinalysis Comment Fine granular casts Urine Culture Reflexed Not indicated Lipase 27U/L (13-60) White Blood Count 5.0th/mm3 (3.8-10.1) Red Blood Count 3.60mil/mm3 (3.90-5.20) Hemoglobin 10.5g/dL (12.0-15.6) Hematocrit 31.9% (35.0-46.0) Mean Corpuscular Volume 88.6fL (81-100) Mean Corpuscular Hemoglobin 29.2pg (27.0-35.0) Mean Corpuscular Hemoglobin Concent 32.9% (32.0-37.0) Red Cell Distribution Width 12.3% (12.3-15.4) Platelet Count 229bil/L (150-400) Neutrophils (%) (Auto) 66.8% (40-74) Lymphocytes (%) (Auto) 20.6% (14-46) Monocytes (%) (Auto) 10.4% (4-12) Eosinophils (%) (Auto) 1.6% (0-5) Basophils (%) (Auto) 0.2% (0-3) Sodium Level 140mEq/L (134-144) Potassium Level 3.6mEq/L (3.5-5.2) Chloride Level 103mEq/L (97-108) Carbon Dioxide Level 24mmol/L (18-29) Blood Urea Nitrogen 9mg/dL (6-24) Creatinine 0.52mg/dL (0.57-1.00) Estimat Glomerular Filtration Rate 183mL/min (>59) Glucose Level 85mg/dL (60-99) Calcium Level 8.3mg/dL (8.5-10.1) Total Bilirubin 0.2mg/dL (0.0-1.2) Aspartate Amino Transf (AST/SGOT) 11U/L (0-50) Alanine Aminotransferase (ALT/SGPT) 16U/L (0-32) Alkaline Phosphatase 54U/L (25-150) Total Protein 5.0g/dL (6.4-8.4) Albumin 2.9g/dL (3.4-5.0) Plan Impression Patient chart reviewed, patient interviewed and anesthestic plan with risks, benefits, and alternatives discussed, and informed consent obtained. NPO per Anesth. Guidelines: Yes ASA Physical Status: ASA3 Severe Disease Anesthetic Plan: MAC Bene/Risks/Altern/Consents: Yes HP Complete Prior to Induction: Yes Owen Burk MD Sep 14, 2016 16:29
[2016-09-14] MEDS ORDERED: Lactated Ringer's 1,000 ML IV SCH (18:12)
[2016-09-14] MEDS ORDERED: Lactated Ringer's 500 ML IV PRN (18:12)
--- NOTE | 2016-09-14 18:12 | PCM.ANEP1 ---
Post Anesthesia PACU Phase 1 Assessment Vital Signs Vital Signs Date Time Temp Pulse Resp B/P Pulse Ox O2 Delivery O2 Flow Rate FiO2 09/14/16 16:15 37.5 09/14/16 14:30 38.4 86 12 131/83 96 Room Air Anesthetic Administered: MAC Level of Alertness: Awake, talking SWEENEY's with Equal Strength: Yes Pain: Yes Pain Scale Score: 7 Nausea or Vomiting: No CV Function & Hydration Stable: Yes Airway Device: none Oxygen Delivery: Simple Mask Lungs: Clear to Auscultation PACU Phase 2 Assessment Complications: No Follow up Care: No Patient Instructions Provided: Yes Owen Burk MD Sep 14, 2016 18:12
[2016-09-14] MEDS ORDERED: Phenylephrine 10,000 mCg/mL Inj IVPUSH PRN (18:15)
[2016-09-14] MEDS ORDERED: MetoCLOpramide 5 mg/mL 2 mL Inj IVPUSH PRN (18:15)
[2016-09-14] MEDS ORDERED: Dexamethasone 4 mg/mL Inj IVPUSH PRN (18:15)
[2016-09-14] MEDS ORDERED: Ondansetron 2 mg/mL 2 mL Inj IVPUSH PRN (18:15)
[2016-09-14] MEDS ORDERED: fentaNYL-PF 50 mCg/mL 2 mL Inj IVPUSH PRN (18:15)
[2016-09-14] MEDS ORDERED: EPHEDrine Sulfate 50 mg/mL Inj IVPUSH PRN (18:15)
--- NOTE | 2016-09-14 18:24 | DRSVH ---
PROCEDURE: CT ABDOMEN PANCREATIC PROTOCOL INDICATIONS: DILATED COMMON BILE DUCT TECHNIQUE: Noncontrast 3 mm thick sections acquired through the pancreas. After the administration of intraveno us contrast, 3 mm thick pancreatic-phase images acquired from the diaphragm to the iliac crests. 3 m m thick coronal and sagittal reformats were performed. For radiation dose reduction, the following w as used: automated exposure control, adjustment of mA and/or kV according to patient size. COMPARISON: [facility], [place], [place] HIDA SCAN BILE LEAK, 09/13/2016, 15:17. [facility] pital, CT, CT KUB, 09/11/2016, 22:05. FINDINGS: Image quality: Good Lung bases: Lung bases show subsegmental atelectasis versus infiltrates. Heart size is normal. Pancreas: Pancreas is considered normal. No mass is seen no dilated duct is seen no pancreatic calcif ications or peripancreatic fluid collections are seen. Other solid organs: Liver and spleen are normal in size and enhancement. The gallbladder has been re moved. There is a drainage catheter in the gallbladder fossa. . Biliary system is non dilated within the liver compared to the CT KUB of 09/11/16. The common bile duct is enlarged as before. Cause is not identified. No obstruction is seen within it as a HIDA scan of 09/13/16 shows good visualization of b owel loops.. No adrenal nodules. Kidneys are normal in size and enhancement, without hydronephrosis . Peritoneum and bowel: There is free air in the nondependent portion of the peritoneum consistent wit h surgery 2 days ago. This is seen in the upper abdomen is the stomach and liver. No accumulating flu id collections are seen in the gallbladder fossa. There is stranding around the descending colon exte nding down beyond the margins of the film. Cause of this stranding or inflammation is not identified. It is potentially related to surgery but was not present on the KUB of 09/11/16. Colitis can cause th is appearance as well. No obstruction of bowel loops. Nodes and vessels: No retroperitoneal or mesenteric adenopathy by size criteria. Aorta and inferior vena cava are normal in size. Bones: No suspicious bony lesions. No vertebral body compression fractures. Miscellaneous: No ventral hernias. * . IMPRESSION: the findings of the abdomen (not including the pelvis which was not ordered. ) : 1. Postoperative findings from cholecystectomy. Drainage tube in the gallbladder fossa, small amount of peritoneal air. No accumulating pleural fluid. 2. There is some edematous change around the ascending colon. Depending upon surgery this is possibly related versus a colitis of the ascending colon. 3. No dilatation of the intrahepatic biliary tree is seen. Extrahepatic biliary tree remains dilated but without obstruction is noted on the HIDA scan. 4. Bibasilar atelectasis versus early infiltrates. 5.. No abnormality is seen of the pancreas. Dictated by: Bill Maza M.D. on 09/14/2016 at 18:09 Approved by: Bill Maza M.D. on 09/14/2016 at 18:22
--- NOTE | 2016-09-14 18:54 | NUR ---
CESAR Patient brought to [facility] post MRI with deep sedation pr anesthesiologist. Awake, oriented and obeys commands on arrival. Taking ice chips and ambulate to bathroom with assist. Transferred back to [facility] by bed at 1830. Report to receiving RN.
[2016-09-15 00:10] VITALS: BP 121/78; PULSE 87; RESP 14; O2SAT 96
[2016-09-15] MEDS: HYDROmorphone 1 mg/mL Inj IVPUSH PRN ×2 (02:27→20:01)
[2016-09-15 04:38] VITALS: BP 118/71; PULSE 88; RESP 14; O2SAT 94
--- NOTE | 2016-09-15 05:30 | NUR ---
Minimal Px with little anxiety Pt. had less Px this shift and no anxiety issues. VSS and she is in good spirits. CLARISSE continues to put out over 100 ML a shift.
--- NOTE | 2016-09-15 07:56 | DRSVH ---
PROCEDURE: MR ABDOMEN MRCP INDICATIONS: Dilation CBD. TECHNIQUE: Coronal HASTE through the abdomen, axial 2-D FLASH in- and [id number], and breath-hold T2 FSE with fat saturation through the biliary system and pancreas. Oblique coronal and axial thin-slice HASTE, radial thick-slab HASTE centered on the extrahepatic bile ducts. Intravenous secretin: Not requested. COMPARISON: [facility], [place], [place] HIDA SCAN BILE LEAK, 09/13/2016, 15:17. [facility] pital, [place], ABDOMEN LTD, 09/12/2016, 0:29. [facility], CT, CT ABD PANCREATIC PROTOCOL, 08/27, 17:29. FINDINGS: Image quality: There are mild motion artifacts. Pancreas and biliary system: Intra-hepatic biliary ducts are non-dilated. There is dilation of intr ahepatic biliary duct with the common bile duct measuring up to 10 mm. Filling defects seen within th e common bile duct on axial images (series 5 image 3, 8 and 10) are not confirmed on coronal images, suggesting artifacts. Gallbladder is surgically absent. There is mild edema in the gallbladder fossa. A small amount of free fluid is seen around liver. Pancreas is normal in morphology, without adjacen t soft tissue edema. Pancreatic duct is normal in caliber, without developmental anomalies. Other solid organs: Liver and spleen are normal in size. No adrenal nodules. Both kidneys are norm al in size, without hydronephrosis. Nodes and vessels: No retroperitoneal or mesenteric adenopathy by size criteria. Aorta and inferior vena cava are normal in size. Bowel and peritoneum: There is mild edema and or thickening in vertical segment of duodenum. Unenhan ashish bowel loops are normal in caliber. No free fluid. Lung bases: Bibasilar atelectasis. Trace pleural effusions. Heart size is normal. Bones and soft tissues: No ventral hernias. Bone marrow is of normal overall signal. IMPRESSION: 1. Dilated extrahepatic biliary bile duct with the common bile duct measuring up to 10 mm. Filling de fects seen on axial images are not substantiated on coronal images, suggesting artifact. Retained sto floridalma/sludge felt less likely but not entirely excluded. 2. Cholecystectomy. There is mild inflammatory change in the gallbladder fossa. A small amount of imelda e fluid is present around the liver. 3. Mild edema and thickening of the vertical segment of duodenum. 4. Trace bilateral pleural effusions and bibasilar atelectasis. Dictated by: Rachel Loya M.D. on 09/15/2016 at 7:39 Approved by: Rachel Loya M.D. on 09/15/2016 at 7:54
--- NOTE | 2016-09-15 08:00 | NUR ---
Anxiety Patient reports anxiety about testing, CLARISSE drain, and plan of care. Explained why the CLARSISE drain was necessary and why it could have more than normal drainage. Discussed plan of care and given comfort. Patient became more at ease.
[2016-09-15 09:00] VITALS: BP 137/86; PULSE 72; RESP 16; O2SAT 96
[2016-09-15] MEDS: Piperacillin-Tazo 3.375 Gm Inj 3.375 GM in Dextrose 5% Minibag Plus 50 ML IV SCH ×3 (09:09→23:27)
--- NOTE | 2016-09-15 09:22 | PCM.PNSURG ---
Subjective Date of Service: Sep 15, 2016 Date of Service: Sep 15, 2016 Visit Information: Reason for Visit Cholelithiasis, Cholecystitis,Choledochothiasis Surgery/Surgery Date Post-Op Day # 3 S/P Laparoscopic cholecystectomy Date of Admission: Sep 12, 2016 at 01:58 Hospital Day # Subjective: CT abdomen and MRCP successfully completed yesterday and repeat HID scan today. The patient reports improved generalized nonspecific intermittent abdominal pain. She denies any significant nausea, vomiting, or bowel movements; but is hungry and tolerating a clear liquid diet and reported passing gas. Her a.m. labs are still pending but the CLARISSE looks bilious. The patient is tolerating independent ambulation and feeling better today. Gastrointestinal: Good Appetite, No N/V, Passing Flatus Pain Management: Good Pain Control Objective Vital Sign- Last 8 Hours Date Time Temp Pulse Resp B/P Pulse Ox O2 Delivery O2 Flow Rate FiO2 09/15/16 04:38 36.8 88 14 118/71 94 Room Air Intake and Output- Last 8 Hour 09/15/16 Cumulative From/Thru 07:00 09/11/16 19:33 - 09/15/16 04:39 Intake Total 1170 ml 5739 ml Output Total 120 ml 1080 ml Balance 1050 ml 4659 ml Intake Oral 400 ml 2070 ml IV Total 770 ml 3669 ml Output Urine Total 600 ml Drainage Total 120 ml 380 ml Estimated Blood Loss 100 ml # Voids 2 7 # Bowel Movements 0 General: Alert, Oriented X3, Cooperative, No Acute Distress Lungs: Clear to Auscultation Heart: Exam Unremarkable Abdomen: Soft, Appropriately tender, Non-distended SURGICAL WOUND : Wound General Appearence: Steri Strips, Intact, Well Approximated, No Erythema, No Discharge, No Inflammatory Changes Dressing & Drainage Status: Dressing Removed Wound Drainage Type: CLARISSE Drain #1 (230 mL serosanguineous output yesterday & 60 mL bilious output today) Neuro: Normal Speech Result Diagram: 09/14/16 0742 09/15/16 0620 Assessment & Plan Impression This is a 46-year-old female postoperative day #3 status post laparoscopic cholecystectomy but her attending surgeon Dr. Sameer Barclay M.D. was unable to perform intraoperative cholangiogram documenting bilious drain output postoperative day #1 and today. She also completed a abdominal CT scan and MRCP yesterday that was inconclusive for retained sludge or stones a negative HIDA scan today. There was also a previous negative HIDA scan. Her white blood cell count, bilirubin, and liver enzymes are within normal limits. She is otherwise doing well on clear liquids without significant nausea, vomiting, or bowel movements and her pain is better controlled. On-call general surgeon Dr. Foley recommended body fluid analysis of the patient's Vicente-Sims drain that was positive for bilirubin. We will hold her drain and cautiously advance her diet. Primary diagnosis: 1. Acute cholecystitis 2. Status post laparoscopic cholecystectomy POD # 3 3. Idiopathic dilated common bile. Other Medical & Surgical History History of methamphetamine abuse History of pneumonia 2016 Tubal ligation GERD UTI Nephrolithiasis Anxiety Bipolar disorder History of depression and suicide attempts 2010 Problems: Plan 1. Hold CLARISSE Drain until output normalizes & minimizes. 2. Continue standard postoperative protocols including encouraging supervised ambulation. 4. Repeat a.m. labs. 5. Advance Diet. Gianfranco Jurado PA-C Sep 15, 2016 09:22 Gianfranco Jurado PA-C Sep 15, 2016 09:22
[2016-09-15 10:16] LABS: BASOPHILS % (AUTO) 0.6 % (0-3); EOSINOPHILS % (AUTO) 2.4 % (0-5); MONOCYTES % (AUTO) 11.9 % (4-12); Mean Corpuscular Hemoglobin 29.5 pg (27.0-35.0); Mean Corpuscular Volume 88.6 fL (81-100); NEUTROPHILS % (AUTO) 58.9 % (40-74); Platelet Count 284 bil/L (150-400)
[2016-09-15] MEDS: Lactated Ringer's 1,000 ML IV SCH ×3 (11:58→23:28)
[2016-09-15 15:00] VITALS: BP 122/81; PULSE 92; RESP 16; O2SAT 97
--- NOTE | 2016-09-15 15:15 | DRSVH ---
PROCEDURE: [place] HIDA SCAN BILE LEAK RADIOPHARMACEUTICAL: 5.3 mCi Tc-99m mebrofenin IV. INDICATIONS: BILE IN SURGICAL DRAIN. TECHNIQUE: Following intravenous administration of Tc-99m mebrofenin, sequential anterior abdominal images were obtained through at least 60 minutes. COMPARISON: [facility], MR, MR ABD MRCP, 09/14/2016, 17:06. [facility], [place], [place] HIDA SCAN BILE LEAK, 09/13/2016, 15:17. [facility], CT, CT ABD PANCREATIC PROTOCOL, , 17:29. FINDINGS: There is normal tracer uptake and excretion by the liver. There is normal visualization o f intrahepatic ducts and a common bile duct. There is normal tracer excretion into duodenum. Gallbl adder is not visualized, consistent with cholecystectomy. IMPRESSION: No bile leak visualized. Dictated by: Rachel Loya M.D. on 09/15/2016 at 15:05 Approved by: Rachel Loya M.D. on 09/15/2016 at 15:13
[2016-09-15 17:55] VITALS: BP 134/72; PULSE 85; RESP 16; O2SAT 96
--- NOTE | 2016-09-15 20:04 | PCM.PNMED ---
Subjective Date of Service Sep 15, 2016 Subjective Patient is feeling better, she is still having some diffuse abdominal discomfort but the sharp pain that she was feeling yesterday has resolved Exam Vital Signs Vital Sign - Last Date Time Temp Pulse Resp B/P Pulse Ox O2 Delivery O2 Flow Rate FiO2 09/15/16 17:55 36.9 85 16 134/72 96 Room Air Intake and Output 09/14/16 09/14/16 09/15/16 Cumulative From/Thru 15:00 23:00 07:00 09/11/16 19:33 - 09/15/16 04:39 Intake Total 1170 ml 5739 ml Output Total 50 ml 60 ml 120 ml 1080 ml Balance -50 ml -60 ml 1050 ml 4659 ml Intake Oral 400 ml 2070 ml IV Total 770 ml 3669 ml Output Urine Total 600 ml Drainage Total 50 ml 60 ml 120 ml 380 ml Estimated Blood Loss 100 ml # Voids 2 7 # Bowel Movements 0 Exam Gen- resting comfortably in bed. HEENT- no pallor or icterus Resp- clear bilaterally CVS-RRR, no murmurs Abdomen- soft, mild diffuse tenderness, CLARISSE drain with serosanguineous drainage, dressing intact with some drainage. Lab and Diagnostics Bilirubin and transaminases normal Result Diagram: 09/15/16 0620 09/15/16 0620 X-Rays, CTs and MRIs CT ABDOMEN PANCREATIC PROTOCOL IMPRESSION: the findings of the abdomen (not including the pelvis which was not ordered. ) : 1. Postoperative findings from cholecystectomy. Drainage tube in the gallbladder fossa, small amount of peritoneal air. No accumulating pleural fluid. 2. There is some edematous change around the ascending colon. Depending upon surgery this is possibly related versus a colitis of the ascending colon. 3. No dilatation of the intrahepatic biliary tree is seen. Extrahepatic biliary tree remains dilated but without obstruction is noted on the HIDA scan. 4. Bibasilar atelectasis versus early infiltrates. 5.. No abnormality is seen of the pancreas. Dictated by: Bill Maza M.D. on 09/14/2016 at 18:09 MR ABDOMEN MRCP IMPRESSION: 1. Dilated extrahepatic biliary bile duct with the common bile duct measuring up to 10 mm. Filling defects seen on axial images are not substantiated on coronal images, suggesting artifact. Retained stones/sludge felt less likely but not entirely excluded. 2. Cholecystectomy. There is mild inflammatory change in the gallbladder fossa. A small amount of free fluid is present around the liver. 3. Mild edema and thickening of the vertical segment of duodenum. 4. Trace bilateral pleural effusions and bibasilar atelectasis. Dictated by: Rachel Loya M.D. on 09/15/2016 at 7:39 Additional Diagnostics NM HIDA SCAN BILE LEAK FINDINGS: There is normal tracer uptake and excretion by the liver. There is normal visualization of intrahepatic ducts and a common bile duct. There is normal tracer excretion into duodenum. Gallbladder is not visualized, consistent with cholecystectomy. IMPRESSION: No bile leak visualized. Dictated by: Rachel Loya M.D. on 09/15/2016 at 15:05 Assessment & Plan 46-year-old female status post laparoscopic cholecystectomy, patient continued to have occasional sharp abdominal pain, cholangiogram was not able to be performed during surgery raising concern for retained stones. MRCP showed that restaging stones/sludge were less likely but not entirely excluded. An filling defects only visualized on axial images which suggests artifact. There was concern for bile leak, CLARISSE drain showed presence of bilirubin, however HIDA scan shows no leak. Dilated CBD with Normal LFT's -Patient is improving symptomatically -MRCP does not show strong indication that ERCP would be helpful for patient. -If symptoms persist and patient needs further visualization EUS could be considered. S/P cholecystectomy for acute calculous cholecystitis -post op care as per surgery team From a GI standpoint if patient is symptomatically improved and medically stable she is okay to discharge home. VTE Mechanical Devices: Intermittant Pneumatic CD Attending Statement patient seen and examined agree with Dr roberson's note above. copies to: Ghanshyam Chapman MD, Erika R DO Sep 15, 2016 20:04 Ghanshyam Chapman MD Sep 19, 2016 16:20 Loida Roberson DO Sep 15, 2016 20:04 Ghanshyam Chapman MD Sep 19, 2016 16:20
[2016-09-15 20:09] VITALS: BP 143/83; PULSE 72; RESP 18; O2SAT 99
[2016-09-15] MEDS ORDERED: 0.9% Sodium Chloride 250 ML ONE (22:01)
[2016-09-16 05:12] VITALS: BP 117/74; PULSE 78; RESP 16; O2SAT 96
--- NOTE | 2016-09-16 05:37 | NUR ---
ABD pain / GI Rated 7 and decreases to 5 after Roxicodone. Ambulated hallway last night to help relieve anxiety. States she has night terrors and was tearful. Boyfriend in at bedside and patient now more relaxed. Diet advanced to soft and patient able to eat ice cream and pudding last night without nausea or increased pain. VSS, care ongoing.
[2016-09-16] MEDS: Lactated Ringer's 1,000 ML IV SCH (06:04)
[2016-09-16 07:38] LABS: BASOPHILS % (AUTO) 0.3 % (0-3); EOSINOPHILS % (AUTO) 2.9 % (0-5); MONOCYTES % (AUTO) 12.6 % (4-12); Mean Corpuscular Hemoglobin 29.3 pg (27.0-35.0); Mean Corpuscular Volume 86.9 fL (81-100); NEUTROPHILS % (AUTO) 66.1 % (40-74); Platelet Count 282 bil/L (150-400)
--- NOTE | 2016-09-16 07:44 | PCM.PNSURG ---
Subjective Date of Service: Sep 16, 2016 Date of Service: Sep 16, 2016 Visit Information: Reason for Visit Cholelithiasis, Cholecystitis,Choledochothiasis Surgery/Surgery Date Post-Op Day # 4 S/P Laparoscopic cholecystectomy Date of Admission: Sep 12, 2016 at 01:58 Hospital Day # Subjective: The patient reports improved generalized nonspecific intermittent abdominal pain. She denies any significant nausea, vomiting, or bowel movements; but is hungry and tolerating a soft diet with reported flatus. Her a.m. labs are still pending but the CLARISSE still looks a little bilious. The patient is tolerating independent ambulation and feeling better today. Objective Vital Sign- Last 8 Hours Date Time Temp Pulse Resp B/P Pulse Ox O2 Delivery O2 Flow Rate FiO2 09/16/16 05:12 36.7 78 16 117/74 96 Room Air Intake and Output- Last 8 Hour 09/16/16 Cumulative From/Thru 07:00 09/11/16 19:33 - 09/16/16 05:17 Intake Total 1050 ml 7409 ml Output Total 790 ml 1960 ml Balance 260 ml 5449 ml Intake Oral 650 ml 2720 ml IV Total 400 ml 4689 ml Output Urine Total 700 ml 1300 ml Drainage Total 90 ml 560 ml Estimated Blood Loss 100 ml # Voids 9 # Bowel Movements 0 General: Alert, Oriented X3, Cooperative, No Acute Distress Lungs: Clear to Auscultation Heart: Exam Unremarkable Abdomen: Soft, Appropriately tender, Non-distended SURGICAL WOUND : Wound General Appearence: Steri Strips, Intact, Well Approximated, No Erythema, No Discharge, No Inflammatory Changes Dressing & Drainage Status: Intact, Dressing Removed, No Purulent Drainage, No Odor Wound Drainage Type: CLARISSE Drain #1 (90 mL of mostly serosanguineous and less bilious output) Extremities: Thigh&Calf Soft/Nontender Neuro: Normal Speech Result Diagram: 09/16/16 0720 09/15/16 0620 Assessment & Plan Impression This is a 46-year-old female postoperative day #4 status post laparoscopic cholecystectomy performed by Surgeon Dr. Sameer Barclay M.D. w/o cholangiogram & documenting decreasing bilious drainage. She also completed a abdominal CT scan , MRCP and two HIDA scans that were inconclusive for retained sludge or stones and negative for bile leak in biliary tract. Her white blood cell count, bilirubin, are normal and only ALT is mildly elevated at 46. She is otherwise doing well on physical exam, with her soft diet without significant nausea, vomiting, or bowel movements and her pain is better controlled with PO analgesics as needed. We will advance her diet to general and send her home this afternoon with her drain, care instructions, pain and anti-constipation prescriptions; to follow up in the outpatient [facility] next week. Primary diagnosis: 1. Acute cholecystitis 2. Status post laparoscopic cholecystectomy POD # 4 3. Idiopathic dilated common bile w/ surgical drain bile output Other Medical & Surgical History History of methamphetamine abuse History of pneumonia 2016 Tubal ligation GERD UTI Nephrolithiasis Anxiety Bipolar disorder History of depression and suicide attempts 2010 Problems: Plan 1. Consider dc home this afternoon with her drain, instructions, prescriptions, & follow up in clinic next week. 2. Start general diet now. 3. PT and social work consult for disposition home today Gianfranco Jurado PA-C Sep 16, 2016 07:44
[2016-09-16 08:00] VITALS: BP 122/83; PULSE 73; RESP 18; O2SAT 97
[2016-09-16] MEDS: Piperacillin-Tazo 3.375 Gm Inj 3.375 GM in Dextrose 5% Minibag Plus 50 ML IV SCH ×2 (08:17→15:30)
[2016-09-16] MEDS ORDERED: OXYC5CAP4 PO (09:14)
[2016-09-16] MEDS ORDERED: DOCU250C2 PO (09:16)
[2016-09-16] MEDS ORDERED: POLY17PO6 PO (09:18)
--- NOTE | 2016-09-16 10:11 | PCM.DISURG ---
Surgical Discharge Instruction Date of Service Sep 16, 2016 Dates of Hospitalization Date of Hospital Admission Sep 12, 2016 at 01:58 Providers Admitting Physician: Ashley Oliveros DO Primary Care Physician: Samantha Hines PA-C Attending Physician: Ashley Oliveros DO Discharge Diagnosis Discharge Diagnosis Primary diagnosis: 1. Acute cholecystitis 2. Status post laparoscopic cholecystectomy POD # 4 3. Idiopathic dilated common bile w/ surgical drain bile output Other Medical & Surgical History History of methamphetamine abuse History of pneumonia 2016 Tubal ligation GERD UTI Nephrolithiasis Anxiety Bipolar disorder History of depression and suicide attempts 2010 Post Operative diagnosis Primary diagnosis: 1. Acute cholecystitis 2. Status post laparoscopic cholecystectomy POD # 4 3. Idiopathic dilated common bile w/ surgical drain bile output Other Medical & Surgical History History of methamphetamine abuse History of pneumonia 2016 Tubal ligation GERD UTI Nephrolithiasis Anxiety Bipolar disorder History of depression and suicide attempts 2010 Diet Discharge Diet: No restrictions Activity Discharge Activity-General: Activity as pain allows, Activity as energy allows , No lifting >15 pounds for 2 weeks Dressing and Incisional Care Dressing Care: Allow Steri Stripes to fall off Hygiene: May shower, DO NOT soak incision under water, NO bathtub, hot tub or whirlpool Additional Instructions Discharge Instructions 1. Empty drain daily or more frequently as needed. 2. Record daily output from drain. 3. Call position general surgery clinic when necessary for drain removal if 24- hour output is less than 30 mL for 2 consecutive days. 4. Strip drain twice daily her nurse instructions. 5. Keep surgical incisions and drain clean. Follow Up Plan Follow Up Plan Follow-up with physician assistant professor of biology in outpatient general surgery clinic in 1 week. Follow-up Provider (F9): Eleazar Leon PA-C Follow-up appointment: Weeks (1) Call your provider for: Fever, Chills, Shortness of breath, Increasing abdominal pain, Nausea, Vomiting, Wound redness, Increasing wound pain, Warmth to touch, Discharge @ incision, pus discharge Gianfranco Jurado PA-C Sep 16, 2016 10:11
--- NOTE | 2016-09-16 10:19 | NUR ---
Evaluation completed. Please go to "Notes" then click on "Assessments and Notes" (bottom left corner of screen). Then select appropriate discipline tab on top of screen.
--- NOTE | 2016-09-16 10:54 | PCM.PNMED ---
Subjective Date of Service Sep 16, 2016 Subjective Patient is sleepy but appropriate. She has diffuse abdominal soreness without nausea, or vomiting. She has not had a bowel movement but is passing gas. Exam Vital Signs Vital Sign - Last Date Time Temp Pulse Resp B/P Pulse Ox O2 Delivery O2 Flow Rate FiO2 09/16/16 08:00 36.8 73 18 122/83 97 Room Air Intake and Output 09/15/16 09/15/16 09/16/16 Cumulative From/Thru 15:00 23:00 07:00 09/11/16 19:33 - 09/16/16 05:17 Intake Total 620 ml 1050 ml 7409 ml Output Total 60 ml 30 ml 790 ml 1960 ml Balance -60 ml 590 ml 260 ml 5449 ml Intake Oral 650 ml 2720 ml IV Total 620 ml 400 ml 4689 ml Output Urine Total 700 ml 1300 ml Drainage Total 60 ml 30 ml 90 ml 560 ml Estimated Blood Loss 100 ml # Voids 2 9 # Bowel Movements 0 Exam General: Sleepy, No acute distress, well-developed, well-nourished, appropriately interactive HEENT: Normocephalic, atraumatic. External ears without defect. Neck: Supple with full range of motion. Cardiovascular: Regular rate and rhythm with no murmurs, rubs, or gallops appreciated Pulmonary: Clear to auscultation bilaterally with no crackles, wheezes, or rhonchi. Normal respiratory effort with no use of accessory muscles. Abdomen: Bowel tones present. Soft, nontender, nondistended. No hepatosplenomegaly or masses appreciated. CLARISSE drain with serosanguineous todd colored drainage Extremities: No clubbing, cyanosis, edema, or lymphadenopathy appreciated. Skin: Normal temperature, turgor, and texture; no rash, ulcers, or subcutaneous nodules appreciated. Neurological: Cranial nerves grossly intact. No known gait impairment. Psychiatric: Normal mood and affect. Alert and oriented to person, place, and time. Lab and Diagnostics Result Diagram: 09/16/1671909/16/16 07 X-Rays, CTs and MRIs CT ABDOMEN PANCREATIC PROTOCOL IMPRESSION: the findings of the abdomen (not including the pelvis which was not ordered. ) : 1. Postoperative findings from cholecystectomy. Drainage tube in the gallbladder fossa, small amount of peritoneal air. No accumulating pleural fluid. 2. There is some edematous change around the ascending colon. Depending upon surgery this is possibly related versus a colitis of the ascending colon. 3. No dilatation of the intrahepatic biliary tree is seen. Extrahepatic biliary tree remains dilated but without obstruction is noted on the HIDA scan. 4. Bibasilar atelectasis versus early infiltrates. 5.. No abnormality is seen of the pancreas. Dictated by: Bill Maza M.D. on 09/14/2016 at 18:09 MR ABDOMEN MRCP IMPRESSION: 1. Dilated extrahepatic biliary bile duct with the common bile duct measuring up to 10 mm. Filling defects seen on axial images are not substantiated on coronal images, suggesting artifact. Retained stones/sludge felt less likely but not entirely excluded. 2. Cholecystectomy. There is mild inflammatory change in the gallbladder fossa. A small amount of free fluid is present around the liver. 3. Mild edema and thickening of the vertical segment of duodenum. 4. Trace bilateral pleural effusions and bibasilar atelectasis. Dictated by: Rachel Loya M.D. on 09/15/2016 at 7:39 Additional Diagnostics NM HIDA SCAN BILE LEAK FINDINGS: There is normal tracer uptake and excretion by the liver. There is normal visualization of intrahepatic ducts and a common bile duct. There is normal tracer excretion into duodenum. Gallbladder is not visualized, consistent with cholecystectomy. IMPRESSION: No bile leak visualized. Dictated by: Rachel Loya M.D. on 09/15/2016 at 15:05 Assessment & Plan 46-year-old female status post laparoscopic cholecystectomy, patient continued to have occasional sharp abdominal pain, cholangiogram was not able to be performed during surgery raising concern for retained stones. MRCP showed that restaging stones/sludge were less likely but not entirely excluded. An filling defects only visualized on axial images which suggests artifact. There was concern for bile leak, CLARISSE drain showed presence of bilirubin, however HIDA scan shows no leak. Dilated CBD with Normal LFT's -Patient is improving symptomatically -MRCP does not show strong indication that ERCP would be helpful for patient at this time -If symptoms persist and patient needs further visualization EUS could be considered. -recommend follow up with PCP and GI referral if needed in the outpatient setting S/P cholecystectomy for acute calculous cholecystitis -post op care as per surgery team From a GI standpoint if patient is symptomatically improved and medically stable she is okay to discharge home. VTE Mechanical Devices: Intermittant Pneumatic CD Attending Statement I did not see the patient on this day case was discussed with Dr Parkinson and Surgery and felt that she was stable to go home Her ALT was minimally elevated this AM recommend following this with repeat LFT's in 1 week copies to: Ghanshyam Chapman MD, Erika R DO Sep 16, 2016 08:42 Ghanshyam Chapman MD Sep 19, 2016 16:24
--- NOTE | 2016-09-16 13:29 | PCM.DC.SUR ---
Discharge Summary Date of Service: Sep 16, 2016 Date of Hospital Admission: Sep 12, 2016 at 01:58 Date of Operation(s): 09/12/2016 Date of Discharge: 09/16/2016 Diagnosis at Time of Discharge Primary diagnosis: 1. Acute cholecystitis 2. Status post laparoscopic cholecystectomy 3. Idiopathic dilated common bile duct with bile output from surgical drain Other Medical & Surgical History History of methamphetamine abuse History of pneumonia 2016 Tubal ligation GERD UTI Nephrolithiasis Anxiety Bipolar disorder History of depression and suicide attempts 2010 Problems: Operation Laparoscopic cholecystectomy Brief History and Physical: Ms. Montes is a 46 year old woman who presents with 2 days of right upper quadrant abdominal pain and concern for cholecystitis, prompting surgical evaluation. The patient reports that on Monday afternoon (09/09), she began to gradually develop right upper quadrant abdominal pain and right flank pain. Initially, she thought this pain represented a kidney stone, as it was similar in quality to past episodes of nephrolitihiasis. However, the pain continued to intensity, becoming quite severe. By Monday evening, the pain had become nearly unbearable and has persisted at this level of intensity since then. She describes the pain as sharp and stabbing, radiating toward her right groin. She has had no relief, and therefore decided to present to the ED. With further questioning, she denies any correlation with the pain to PO intake, stating the pain started hours after eating a normal lunch on Monday. She has since not eaten or drank anything out of fear for worsening her symptoms. She has experienced nausea, but no vomiting, and thinks she has had some shaking chills but no fevers. She denies any change in her urine or bowel movements, noting she last passed a normal stool yesterday morning. There have been no sick contacts, and the patient denies ever experiencing similar pain, of a lesser intensity, over the past few months. Consultants: Allergist/Immunologist Dr. Ghanshyam Qureshi Hospital Course: The patient was admitted with a history, presentation, and workup consistent with acute cholecystitis and underwent the above-mentioned operation without complication. She did not have an intraoperative cholangiogram performed. See operative report for details of the procedure. Postoperatively bilious output was identified from body fluid study of her surgical drain. Consequently the patient underwent an extensive workup to rule out bile leak from her biliary tree including CT of the abdomen, magnetic resonance cholangiopancreatography, and two hepatobiliary iminodiacetic acid scans which were negative for retained biliary stones or sludge and bile leak from the biliary tree. Despite the above-mentioned workup the patient's postsurgical recovery was uneventful. She was able to exhibit signs of bowel function with flatus. The patient was stable for discharge on postoperative day #4. At the time of discharge the patient was voiding without difficulty, passing gas, tolerating a general diet without nausea or vomiting, with pain controlled by oral analgesics as needed, ambulating without assistance, and exhibiting clean, dry, and intact surgical wounds without signs of infection, inflammation, and/or hematoma. Her laboratory studies were within normal limits, physical therapy and social work evaluation were recommended prior to discharge. She did however have bile output from her surgical drain therefore it was kept in place at the time of discharge. The patient was discharged with authorization of on- call general surgeon Dr. Jose Oliveros M.D. we also discussed in detail which the patient verbalized understanding her postoperative care (including but not limited limited to her surgical drain) &'s medication instructions; follow-up, and when to seek immediate medical attention. The patient was provided with written instructions & prescriptions for postoperative pain and constipation. Pathology: See pathology report Disposition: Home in stable condition her On-call General Surgeon Dr. Jose Oliveros M.D. Follow-up Plan: Follow-up with physician speech pathology assistant in outpatient general surgery clinic in 1 week or sooner as directed if the operative from the surgical drain is less than 30 mL for two consecutive 24-hour periods. Docusate Sodium (Docusate Sodium) 250 Mg Capsule 250 MG PO BID Polyethylene Glycol 3350 (Miralax) 17 Gm Powd.pack 17 GM PO BID PRN PRN For Constipation oxyCODONE (oxyCODONE) 5 Mg Capsule 5 MG PO BID PRN PRN For Severe Pain Discharge Medications: See medication list for details including postoperative prescriptions MiraLAX, Colace, and oxycodone. copies to: Constantin Sharp MD; Antonieta Bentley Scott PA-C Sep 16, 2016 13:29
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
--- NOTE | 2016-09-16 15:14 | NUR ---
Discharge Pt. is discharged to home and she took all her belongings from room 249-1 MO. Pt. was given educational material on cholecystitis and was told her docusate and polyethylene was already faxed to her pharmacy, prescription oxycodone was also given to Pt in her discharge folder. Pt. was instructed to empty her CLARISES drain as needed and record the amount each time. Pt. was also instructed to call general surgery clinic when necessary for drain removal if 24-hour output is less than 30mL for 2 consecutive days. Pt. was also told that if the steri strips fell off that was ok but to monitor for redness, inflammation, irritation and any discharge of different color and to call her PCP right away. She was instructed to follow up with Cee Rodriguez PA-C on September 22 with a check in time of 1315 and appointment at 1330 at the [facility] surgery department. IV DC'D x1 on right hand and Pt. was given back her belongings that where taken away at time of admission. Mental health outpatient counseling informational sheet was also given to Pt. Pt. left in wheel chair with friends.
== END 2016-09-16 15:15 | disposition home or self-care (01) | DRG 419 ==
LOC: EDBD 19:16 → SED 19:16 → EDUNIT# 19:16 → MOC 09-12 01:58 → OBSVTOIN 09-12 01:58 → INTOOBSV 09-12 01:58
PROVIDERS: ADMIT Family Medicine; ATTEND Student in an Organized Health Care Education/Training Program
PROC: 0FT44ZZ Resection of Gallbladder, Percutaneous Endoscopic Approach (ICD-10-PCS; principal; 2016-09-12 11:00)
DX: K80.00 Calculus of gallbladder with acute cholecystitis without obstruction (principal); K83.8 Other specified diseases of biliary tract; F17.210 Nicotine dependence, cigarettes, uncomplicated; F41.9 Anxiety disorder, unspecified